=== PATIENT | male | born 1955 ===

== ENCOUNTER 2018-01-19 09:38 | Outpatient (CLI) | payer BC, OTHER ==
--- NOTE | 2018-01-19 11:55 | XRAY Report ---
Reason: GOUT, UNSPECIFIED Procedure Date: 01/19/2018 Accession Number: [id number] / [id number] Procedure: XR - Hand 3 View BILAT CPT Code: FULL RESULT: EXAMS: 1. RIGHT HAND RADIOGRAPHY 2. LEFT HAND RADIOGRAPHY EXAM DATE: 01/19/2018 09:58 AM. CLINICAL HISTORY: Gout, unspecified. COMPARISON: None. TECHNIQUE: 3 views each hand. FINDINGS: Right: Bones: Normal. No fractures or bone lesions. Joints: Minimal erosive change associated with the fourth proximal interphalangeal joint. Soft Tissues: Soft tissue thickening and density is noted surrounding the second third and fourth proximal interphalangeal joints. Soft tissue swelling is also seen in the second distal interphalangeal joint region. Left: Bones: Normal. No fractures or bone lesions. Joints: Slight periarticular erosion is seen in the fourth proximal interphalangeal joint. Soft Tissues: There is localized soft tissue swelling about the first and fourth left proximal interphalangeal joint. Subtle soft tissue density. IMPRESSION: Periarticular soft tissue swelling and subtle erosions as described. RADIA
== END 2018-01-19 09:39 | disposition home or self-care (01) ==
LOC: DI 09:38
PROVIDERS: ATTEND Internal Medicine
DX: M94.8X4 Other specified disorders of cartilage, hand (principal); M10.9 Gout, unspecified; R22.33 Localized swelling, mass and lump, upper limb, bilateral

== ENCOUNTER 2018-01-23 09:10 | Outpatient (CLI) | payer BC | END 2018-01-23 09:11 | disposition critical access hospital (66) | LOC: EMS 09:10 | PROVIDERS: ATTEND Surgery | DX: R55 Syncope and collapse (principal) | CPT/HCPCS: A0425; A0427 ==

== ENCOUNTER 2018-01-23 09:32 | Emergency (ER) | payer BC, OTHER ==
[2018-01-23] MEDS ORDERED: SODIUM CHLORIDE 0.9% 1,000 ML IV ONE (10:00)
--- NOTE | 2018-01-23 10:11 | ED Physician Documentation ---
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 - EMS report not available yet 62 male was feeling fine, no recenet ilness travel or med changes was at the gym on the bike and passed out no CP palp SOA etc no injury had LOC with seizure activity for about 15 sec no reported loss of VS per EMS 911 called pt NSR EKG s ischemia and he was orthostatic and dropped BP 50 pts on standing BIBA with IVF Review of Systems Constitutional: denies: Fever, Chills Cardiac: denies: Chest pain / pressure, Palpitations Respiratory: denies: Dyspnea GI: denies: Abdominal Pain, Nausea, Vomiting Musculoskeletal: denies: Neck pain, Back pain Neurologic: reports: Syncope, Seizure. denies: Headache, Head injury Immunocompromised: denies: Immunocompromised PD PAST MEDICAL HISTORY - Past Medical History Past Medical History: Yes Cardiovascular: Hypertension Respiratory: None Neuro: None Endocrine/Autoimmune: None GI: None : None HEENT: None Psych: None Musculoskeletal: None - Past Surgical History Past Surgical History: No - Allergies Allergies/Adverse Reactions: Allergies Allergy/AdvReac Type Severity Reaction Status Date / Time diuretics Allergy Cramps Uncoded 01/23/18 09:46 - Social History Does the pt smoke?: No Smoking Status: Never smoker Does the pt drink ETOH?: Yes Does the pt have substance abuse?: No - Immunizations Immunizations are current?: Yes - POLST Patient has POLST: No PD ED PE NORMAL - Vitals Vital signs reviewed: Yes - General General: Alert and oriented X 3 - HEENT HEENT: Atraumatic - Neck Neck: No bony TTP - Cardiac Cardiac: RRR - Respiratory Respiratory: No respiratory distress - Abdomen Abdomen: Soft, Non tender - Derm Derm: Normal color - Neuro Neuro: Alert and oriented X 3 Results - Vitals Vitals: Vital Signs - 24 hr 01/23/18 01/23/18 09:37 12:10 Temperature 36.8 C Heart Rate 76 69 Respiratory 14 14 Rate Blood Pressure 158/95 H 146/101 H O2 Saturation 98 98 Oxygen O2 Source Room air - EKG (time done) 1151 Rate: Rate (enter#) (71) Rhythm: NSR Ischemia: Non specific changes (falttened T waves V3-V6) - Labs Labs: Laboratory Tests 01/23/18 01/23/18 01/23/18 10:25 11:18 11:18 WBC 12.1 H RBC 3.43 L Hgb 12.1 L Hct 35.4 L MCV 103.4 H MCH 35.4 H MCHC 34.2 RDW 14.5 Plt Count 196 MPV 7.5 Neut # (Auto) 10.8 H Lymph # (Auto) 0.5 L Surry # (Auto) 0.4 Eos # (Auto) 0.2 Baso # (Auto) 0.1 Absolute Nucleated RBC 0.00 Nucleated RBC % 0.0 Sodium 134 L Potassium 4.4 Chloride 104 Carbon Dioxide 21 Anion Gap 9.0 BUN 20 Creatinine 1.4 H Estimated GFR (MDRD) 51 L Glucose 107 H Calcium 8.6 Troponin I < 0.04 Ethyl Alcohol 78.1 - Rads (name of study) echo Radiology: See rad report (NSR, EF 55-60%, no wall motion abn, normal valves, no effusion, nl aorta and pulm artery, no thrombus, no outflow osbt) PD MEDICAL DECISION MAKING - ED course ED course: family arrived and explains pt has been drinking heavily recently last drink was last night - so unlikely to be in DTs at this time - also not tachy or shaky etc but could be dehydrated EKG NSR neg trop nl echo exertional syncope in setting of likely dehydration and orthostatic hypotension doubt EtOH wdrawal as his BA is still78 and he isnt tachy or shaky echo normal gave IVF will dc Departure - Departure Disposition: 01 Home, Self Care Clinical Impression: Syncope and collapse, Dehydration Condition: Good Instructions: ED Dehydration, ED Fainting Unkn Cause Follow-Up: Garth Farooq MD [Primary Care Provider] - (for follow up and to schedule a wear at home heart monitor) Comments: Your labs were fine except dehydration. The EKG and echocardigram do not suggest a structural heart problem or heart attack. You were in a regular heart rhythm while you were here I think you collapsed due to dehydration Rest and drink plenty of fluids Try to cut down on your alcohol use - we gave you a book of local resources if you want to seek help with that. Please follow up with Dr Farooq to get a wear at home monitor to be sure there was no rhythm problem that caused your symptoms Return if worse Forms: Activity restrictions
[2018-01-23 10:33] LABS: BASOPHILS # (AUTO) 0.1 10^3/uL (0.0-0.1); BASOPHILS % (AUTO) 0.9 %; EOSINOPHILS # (AUTO) 0.2 10^3/uL (0.0-0.7); EOSINOPHILS % (AUTO) 1.9 %; HGB - HEMOGLOBIN 12.1 g/dL (14.0-18.0); LYMPHOCYTES # (AUTO) 0.5 10^3/uL (1.5-3.5); LYMPHOCYTES % (AUTO) 4.5 %; MEAN CORPUSCULAR HEMOGLOBIN 35.4 pg (27.0-31.0); MEAN CORPUSCULAR HGB CONC 34.2 g/dL (32.0-36.0); MEAN CORPUSCULAR VOLUME 103.4 fL (80.0-94.0); MEAN PLATELET VOLUME 7.5 fL (7.4-11.4); MONOCYTES # (AUTO) 0.4 10^3/uL (0.0-1.0); MONOCYTES % (AUTO) 3.4 %; NEUTROPHILS # (AUTO) 10.8 10^3/uL (1.5-6.6); NEUTROPHILS % (AUTO) 89.3 %; PLT - PLATELET COUNT 196 10^3/uL (130-450); RED BLOOD COUNT 3.43 10^6/uL (4.70-6.10); RED CELL DISTRIBUTION WIDTH 14.5 % (12.0-15.0); WHITE BLOOD COUNT 12.1 x10^3/uL (4.8-10.8)
[2018-01-23 11:37] LABS: CALCIUM 8.6 mg/dL (8.5-10.3); CREATININE 1.4 mg/dL (0.6-1.2)
[2018-01-23 12:11] VITALS: BP 146/101
== END 2018-01-23 12:46 | disposition home or self-care (01) ==
LOC: ED 09:32
DX: R55 Syncope and collapse (principal); E86.0 Dehydration
CPT/HCPCS: 36415; 80048; 80320; 84484; 85025; 93005; 93306; 99283

== ENCOUNTER 2020-09-18 10:07 | Outpatient (CLI) | payer MEDICARE, OTHER | END 2020-09-18 10:08 | disposition home or self-care (01) | LOC: DI 10:07 | PROVIDERS: ATTEND Internal Medicine | DX: R60.0 Localized edema (principal) | CPT/HCPCS: 93306 ==

== ENCOUNTER 2022-10-05 11:45 | Outpatient (CLI) | payer MEDICARE, OTHER ==
--- NOTE | 2022-10-06 11:10 | Ultrasound Report ---
PROCEDURE: Bladder INDICATIONS: NOCTURIA TECHNIQUE: Real-time scanning was performed of the kidneys and bladder, with image documentation. COMPARISON: Ultrasound abdomen, 01/23/2018. FINDINGS: Bladder: Bladder wall appears mildly thickened. Pre-void bladder volume is 65.4 mL. Post-void resid ual is 22.1 mL. Pre-void images demonstrate no intraluminal masses or stones. On pre-void images, b oth ureteral jets are noted with color Doppler interrogation. (Of note, ureteral jets may not be det ectable in up to 25% of cases due to insufficient differences in specific gravity between ureteral an d bladder urine). Prostate is prominent in size. Miscellaneous: No free pelvic fluid. IMPRESSION: 1. Mild bladder wall thickening. 2. 22.4 mL postvoid residual. 3. Prostate is mildly enlarged. Reviewed by: Yazan Alberts MD on 10/06/2022 11:09 AM PDT Approved by: Yazan Alberts MD on 10/06/2022 11:09 AM PDT Station ID: [id number]
== END 2022-10-05 11:46 | disposition home or self-care (01) ==
LOC: DI 11:45
PROVIDERS: ATTEND Internal Medicine
DX: R39.9 Unspecified symptoms and signs involving the genitourinary system (principal); R35.1 Nocturia; N40.0 Benign prostatic hyperplasia without lower urinary tract symptoms

== ENCOUNTER 2022-11-19 11:11 | Outpatient (CLI) | payer MEDICARE, OTHER ==
[2022-11-19 11:36] LABS: CREATININE 1.6 mg/dL (0.6-1.3)
== END 2022-11-19 11:12 | disposition home or self-care (01) ==
LOC: LAB 11:11
PROVIDERS: ATTEND Physician Assistant Medical
DX: R97.20 Elevated prostate specific antigen [PSA] (principal)
CPT/HCPCS: 36415; 82565; 84520

== ENCOUNTER 2022-11-22 09:25 | Outpatient (CLI) | payer MEDICARE, OTHER ==
--- NOTE | 2022-11-22 18:13 | MRI Report ---
PROCEDURE: PELVIS W/WO INDICATIONS: ELEVATED PSA CONTRAST: gadavist 7.0ml TECHNIQUE: Coronal ultra fast SE, axial T1 FSE with fat saturation, 3-plane nonbreath-hold T2 FSE. After the ad ministration of contrast, dynamic axial, delayed axial and coronal ultra fast GE or 2-D spoiled GE wi th fat saturation through the pelvis. Optional diffusion weighted imaging and ADC may be performed. COMPARISON: None. FINDINGS: Image quality: Diffusion weighted and dynamic contrast enhanced images are diagnostic. Prostate: Gland size is 3.0 x 2.8 x 3.7 cm; ellipsoid gland volume is 16 mL. Prostate lesions: Lesion #1: Size - 1.0 x 0.4 cm. Measured on ADC series 9 image 13 Location - left posterolateral peripheral zone, mid gland-apex. T2 signal - heterogeneous signal intensity. ADC signal - hypointense on ADC images with corresponding DWI hyperintensity. DCE - positive. GENIE - No large volume bulky extraprostatic extension. However, there is long segment abutment of the lesion against the prostate pseudocapsule, difficult to exclude early extraprostatic extension. Seminal vesicle invasion - absent. PI-RADS: T2 signal - 3; DWI - 4; DCE - positive; PI-RADS: 4. Lesion #2: Size - 1.3 x 1.1 cm. Measured on axial T2 series 5 image 11 Location - right anterior transition zone, mid gland. T2 signal - mostly encapsulated hypointense nodule. ADC signal - hypointense on ADC images with corresponding DWI hyperintensity. DCE - positive. GENIE - absent. Seminal vesicle invasion - absent. PI-RADS: T2 signal - 2; DWI - 4; DCE - positive; PI-RADS: 3. Genitourinary system: Bladder wall thickness is normal. Distal ureters are non distended. Right s crotal fluid possible hydrocele. Bowel and peritoneum: No pathologic free pelvic fluid. Inferior colon and small bowel loops are nor mal in caliber. Nodes and vessels: Borderline enlarged left external iliac lymph node 8 mm short axis (axial postcon trast series 31 image 25). Iliac vessels are normal in caliber. Bones: No suspicious bony lesions identified. IMPRESSION: 1. A 1.0 cm lesion at the left peripheral zone, mid gland-apex, is consistent with PI-RADS Category 4 . 2. A 1.3 cm lesion at the right transition zone, mid gland, is consistent with PI-RADS Category 3. 3. Borderline enlarged left external iliac chain lymph node, nonspecific, cindy metastatic disease no t excludable. Reviewed by: John Padgett MD on 11/22/2022 6:12 PM PDT Approved by: John Padgett MD on 11/22/2022 6:12 PM PDT Station ID: [id number]
== END 2022-11-22 09:26 | disposition home or self-care (01) ==
LOC: DI 09:25
PROVIDERS: ATTEND Physician Assistant Medical
DX: R97.20 Elevated prostate specific antigen [PSA] (principal); N40.2 Nodular prostate without lower urinary tract symptoms; R59.0 Localized enlarged lymph nodes
CPT/HCPCS: 72197; A9585